=== PATIENT | male | born 1950 | race Caucasian/White ===

== ENCOUNTER 2017-10-25 06:43 | Day surgery (SDC) | payer OTHER ==
[2017-10-25] MEDS ORDERED: VERSED ONE (08:30)
[2017-10-25] MEDS ORDERED: DIPRIVAN 20 ML VIAL IVP ONE (08:30)
[2017-10-25 09:43] VITALS: BP 110/66; TEMP 97
--- NOTE | 2017-10-25 14:40 | OP ---
PROCEDURE: COLONOSCOPY TO THE CECUM. ENDOSCOPIST: Oliverio ROMAN M.D. INDICATION: HISTORY OF POLYPS. LAST COLONOSCOPY 2011. INSTRUMENT: PCFH-190. MEDICATION: PER ANESTHESIA. PROCEDURE: The patient was positioned for colonoscopy. The digital rectal exam was negative. The colonoscope was inserted through the anus and advanced to the cecum. The cecum was identified using the ileocecal valve and the appendiceal orifice as landmarks. The scope was slowly withdrawn through an adequately prepped colon. The exam was notable for a few scattered diverticula in the left colon. Retroflex exam was otherwise negative. No evidence for polyp or mass on this exam. The patient tolerated the procedure without immediate complication. Withdrawal time 9 minutes, 17 seconds. PLAN: 1. Suggest repeat colonoscopy in 5 years. CC: DR. [address]RI[address]
== END 2017-10-25 09:42 | disposition home or self-care (01) ==
LOC: SURG 06:43
PROVIDERS: ATTEND Internal Medicine Gastroenterology
DX: Z09 Encounter for follow-up examination after completed treatment for conditions other than malignant neoplasm (principal); Z86.010 Personal history of colon polyps; K57.30 Diverticulosis of large intestine without perforation or abscess without bleeding